=== PATIENT | female | born 1965 | race African-American/Black ===

== ENCOUNTER 2016-11-09 23:37 | Emergency (ER) | payer BC ==
[2016-11-10 00:10] LABS: #Basophils 0.1 thou/uL (0.0-0.2); #Lymphocytes 2.9 thou/uL (1.20-3.40); #Monocytes 0.6 thou/uL (0.11-0.59); #Neutrophils 6.8 thou/uL (1.40-6.50); %Basophils 1.4 % (0.0-1.0); %Lymphocytes 27.6 % (21.0-51.0); %Monocytes 5.9 % (0.0-10.0); %Neutrophils 65.1 % (42.0-75.0); Hemoglobin 14.2 g/dL (12.0-16.0); Mean Corpuscular Hemoglobin 25.4 pg (27.0-31.0); Mean Corpuscular Volume 79.3 fl (81.0-99.0); Mean Platelet Volume 9.2 fL (7.4-10.4); Platelet Count 187 thou/uL (130-400); White Blood Cell (WBC) Count 10.4 thou/uL (4.8-10.8)
[2016-11-10 00:22] LABS: Anion Gap 15 mmol/L (10-20); BUN (Urea Nitrogen) 12 mg/dL (7.0-18.7); Calc. Creatinine Clearance 0 mL/min (70-130); Calcium 8.5 mg/dL (7.8-10.44); Carbon Dioxide 24 mmol/L (22-29); Chloride 106 mmol/L (98-107); Estimated GFR-MDRD Greater than 90; Glucose 234 mg/dL (70-105); Potassium 3.9 mmol/L (3.5-5.1); Sodium 141 mmol/L (136-145); Uric Acid 5.6 mg/dL (2.6-6.0)
[2016-11-10] MEDS ORDERED: HYDROcodone/Acetaminophen 10/325 mg Tablet ONE (00:48)
[2016-11-10] MEDS ORDERED: methylPREDNISolone Acetate 40 mg/ml Vial ONE (00:48)
--- NOTE | 2016-11-10 07:14 | RAD ---
LEFT HAND 3 VIEWS: Date: 11/09/16 No prior films available for comparison. FINDINGS: No acute fracture seen. Soft tissue swelling is present along the lateral aspect of the wrist from t he base of the thumb and somewhat proximally. There are several bony densities immediately lateral t o the junction of the scaphoid and trapezium. There is a little irregularity of the trapezium itself . The findings more resemble old trauma that gouty tophi, though the latter is not totally excluded. There is a little bit of degenerative change between the trapezium and base of the first metacarpal . No bony erosions are seen, as is sometimes viewed in gout. IMPRESSION: 1. Soft tissue swelling. 2. Several bony densities near the junction of the scaphoid and trapezium. Thought to be more likel y due to old trauma, but other causes as listed above are not excluded. POS: HOME
== END 2016-11-10 00:58 | disposition home or self-care (01) ==
LOC: BURERS 23:37
DX: M65.4 Radial styloid tenosynovitis [de Quervain] (principal); E11.9 Type 2 diabetes mellitus without complications; E78.5 Hyperlipidemia, unspecified; I10 Essential (primary) hypertension
CPT/HCPCS: 36415; 80048; 84550; 85025; 96372; J1030

== ENCOUNTER 2017-01-13 10:18 | Outpatient (CLI) | payer BC ==
[2017-01-13 10:52] LABS: #Basophils 0.1 thou/uL (0.0-0.2); #Lymphocytes 2.8 thou/uL (1.20-3.40); #Monocytes 0.6 thou/uL (0.11-0.59); #Neutrophils 7.1 thou/uL (1.40-6.50); %Basophils 1.4 % (0.0-1.0); %Lymphocytes 26.5 % (21.0-51.0); %Monocytes 5.3 % (0.0-10.0); %Neutrophils 66.8 % (42.0-75.0); Hemoglobin 14.7 g/dL (12.0-16.0); Mean Corpuscular HGB CONC 32.3 g/dL (32.0-36.0); Mean Corpuscular Hemoglobin 25.2 pg (27.0-31.0); Mean Corpuscular Volume 78.2 fl (81.0-99.0); Mean Platelet Volume 9.3 fL (7.4-10.4); Platelet Count 195 thou/uL (130-400); RBC Distribution Width 15.2 % (11.5-14.5); Red Blood Cell (RBC) Count 5.83 mill/uL (4.20-5.40); White Blood Cell (WBC) Count 10.6 thou/uL (4.8-10.8)
[2017-01-13 11:09] LABS: ALT (SGPT) 12 U/L (8-55); AST (SGOT) 11 U/L (5-34); Albumin 3.7 g/dL (3.5-5.0); Alkaline Phosphatase 72 U/L (40-150); Anion Gap 16 mmol/L (10-20); BUN (Urea Nitrogen) 13 mg/dL (7.0-18.7); Bilirubin, Total 0.4 mg/dL (0.2-1.2); Calc. Creatinine Clearance 0 mL/min (70-130); Calcium 8.7 mg/dL (7.8-10.44); Carbon Dioxide 23 mmol/L (22-29); Cardiac Risk 5.6 (Less than 4.5); Chloride 107 mmol/L (98-107); Cholesterol 150 mg/dl (< 200 Desired); Estimated GFR-MDRD Greater than 90; Globulin 3.9 g/dL (2.4-3.5); Glucose 187 mg/dL (70-105); HDL Cholesterol 27 mg/dL (>60 Neg Risk); LDL Cholesterol, Calculated 89 mg/dL; Potassium 4.3 mmol/L (3.5-5.1); Protein, Total 7.6 g/dL (6.0-8.3); Sodium 142 mmol/L (136-145); Triglycerides 172 mg/dL (Less than 150)
[2017-01-13 17:34] LABS: Creatinine, Urine 100.71 mg/dL (47-110); Microalbumin Urine 10.2 mg/dL (0.5-50.0); Microalbumin/Creat Ratio 101.3 mg/g (Less than 30)
== END 2017-01-13 10:19 | disposition home or self-care (01) ==
LOC: BURLAB 10:18
PROVIDERS: ATTEND Family Medicine
DX: E11.42 Type 2 diabetes mellitus with diabetic polyneuropathy (principal)
CPT/HCPCS: 36415; 80053; 80061; 82043; 84443; 85025

== ENCOUNTER 2017-11-13 14:57 | Emergency (ER) | payer BC ==
--- NOTE | 2017-11-13 19:45 | RAD ---
LEFT ANKLE THREE VIEWS: 11/13/2017 FINDINGS: Marked soft tissue swelling is seen around the ankle. There is a small bony density at the tip of th e medial malleolus, but it is somewhat rounded and it seems more likely that this is due to an old in jury than an acute one. Otherwise, no definite fracture is seen. Some bony spurring is seen in the tibiotalar joint. A very large calcaneal spur is present. IMPRESSION: Soft tissue swelling and chronic changes, but no definite acute fracture. POS: HOME
== END 2017-11-13 16:10 | disposition home or self-care (01) ==
LOC: BURERS 14:57
DX: S93.602A Unspecified sprain of left foot, initial encounter (principal); I10 Essential (primary) hypertension; E78.5 Hyperlipidemia, unspecified; E11.9 Type 2 diabetes mellitus without complications; Z79.82 Long term (current) use of aspirin; Z79.899 Other long term (current) drug therapy; Z79.4 Long term (current) use of insulin; X50.9XXA Other and unspecified overexertion or strenuous movements or postures, initial encounter

== ENCOUNTER 2018-05-03 23:16 | Emergency (ER) | payer BC ==
[2018-05-03] MEDS ORDERED: Azithromycin 250 MG TAB ONE (23:48)
== END 2018-05-03 23:50 | disposition home or self-care (01) ==
LOC: BURERS 23:16
DX: J32.1 Chronic frontal sinusitis (principal); E11.9 Type 2 diabetes mellitus without complications; E78.5 Hyperlipidemia, unspecified; I10 Essential (primary) hypertension; M19.90 Unspecified osteoarthritis, unspecified site; Z79.82 Long term (current) use of aspirin; Z79.4 Long term (current) use of insulin; Z79.899 Other long term (current) drug therapy
CPT/HCPCS: 36416; 99283